=== PATIENT | male | born 1945 | race Caucasian/White ===

== ENCOUNTER 2016-08-17 15:45 | Emergency (ER) | payer OTHER, MEDICARE, BC ==
[2016-08-17 15:57] VITALS: RESP 20
[2016-08-17 17:03] VITALS: TEMP 99
[2016-08-17 17:18] VITALS: BP 155/86; PULSE 58; O2SAT 99
[2016-08-17] MEDS ORDERED: LIDOCAINE HCL 1% MDV SOL SC ONE (17:19)
[2016-08-17] MEDS ORDERED: LIDOCAINE HCL 1% MPF SOL ONE (17:21)
== END 2016-08-17 17:49 | disposition home or self-care (01) | DRG 605 ==
LOC: ED 15:45
DX: S01.01XA Laceration without foreign body of scalp, initial encounter (principal); R51 Headache; R40.2132 Coma scale, eyes open, to sound, at arrival to emergency department; R40.2242 Coma scale, best verbal response, confused conversation, at arrival to emergency department; W01.0XXA Fall on same level from slipping, tripping and stumbling without subsequent striking against object, initial encounter
CPT/HCPCS: 70450; 99285; J2001